=== PATIENT | female | born 1970 | race Caucasian/White ===

== ENCOUNTER 2016-12-23 03:17 | Emergency (ER) | payer BC ==
--- NOTE | 2016-12-23 08:13 | ER ---
ADMIT: 12/23/2016 RM/LOC: ER [facility] MR#: [id number] [address] [id number] JUMA VALLE [address] [place] [id number] Emergency Room Report SEX: F AGE: 46 : 1970 DATE: 12/23/2016 The patient is a 46-year-old female complaining of intermittent thoracolumbar pain for the past 30 days, has been seen a chiropractor with minimal improvement. Denies any radicular pain or bowel or bladder dysfunction. Exam remarkable for nontoxic, afebrile female. No CVA tenderness. No dorsal spine tenderness. X-ray of thoracic spine shows degenerative disk disease and degenerative joint disease, no evidence of compression fractures. LS spine shows sacralization of L6/transitional vertebra with grade 1 spondylolisthesis and bilateral spondylolysis. The patient given Toradol 30, Dilaudid 2 mg, Reglan 5 mg with marked improvement. Home with hydrocodone 5/325 as needed #20 plus 6. Follow up with Dr. Connors, who suggest physical therapy. Calvin Haeny MD/ miladl JOB #: [id number] CC: Calvin Haney MD, Attending Physician Curt Connors MD, Family Physician Curt Connors MD
== END 2016-12-23 05:44 | disposition home or self-care (01) ==
LOC: ER 03:17
DX: M43.17 Spondylolisthesis, lumbosacral region (principal); Z88.0 Allergy status to penicillin; Z90.710 Acquired absence of both cervix and uterus; Z79.899 Other long term (current) drug therapy